=== PATIENT | male | born 1995 | race Caucasian/White ===

== ENCOUNTER 2018-08-20 13:31 | Emergency (ER) | payer BC ==
[2018-08-20 13:52] VITALS: RESP 18; TEMP 98.1
[2018-08-20] MEDS ORDERED: SODIUM CHLORIDE 0.9% 1,000 ML IV STA (14:59)
[2018-08-20 15:29] LABS: Basophils % (A) 0 %; Eosinophils # (A) 0.1 k/uL (0-0.7); Eosinophils % (A) 1 %; HCT 45.8 % (39.0-53.0); HGB 15.1 gm/dL (13.0-17.5); Lymphocytes % (A) 11 %; MCH 31.2 pg (25.0-35.0); MCHC 33.1 g/dL (31.0-37.0); MCV 94.3 fL (80.0-100.0); Mean Platelet Volume 7.4; Monocytes # (A) 0.4 k/uL (0-1.0); Monocytes % (A) 5 %; Neutrophils # (A) 7.5 k/uL (1.3-7.7); Neutrophils % (A) 82 %; Platelet Count 132 k/uL (150-450); RBC 4.85 m/uL (4.30-5.90); RDW 12.7 % (11.5-15.5); WBC 9.2 k/uL (3.8-10.6)
--- NOTE | 2018-08-20 15:39 | ED ---
General Adult HPI - General Chief complaint: Urogenital Stated complaint: Hernia Time Seen by Provider: 08/20/18 14:49 Source: patient Mode of arrival: ambulatory Limitations: no limitations - History of Present Illness Initial comments: 23-year-old male patient presents to the emergency department today for evaluation of a bulging and pain to the right groin. Patient states he has had some discomfort to the right groin region for the last couple of weeks. States that today the area became more painful. He is currently rating at a 5 out of 10 on the pain scale. States he was seen and evaluated at [facility] and was sent over for evaluation of possible incarcerated hernia. He states he did have some difficulty urinating earlier today and that his urine has been quite dark. Denies any fevers or chills. Denies any nausea or vomiting. States he is eating and drinking without difficulty. Denies any difficulty with bowel movements. 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 Patient denies any recent rash, shortness breath, chest pain, diarrhea, constipation, back pain, numbness, tingling, dizziness, weakness, hematuria, dysuria, urinary urgency, urinary frequency, headache, visual changes, or any other complaints. - Related Data Home Medications Medication Instructions Recorded Confirmed Aspirin/Acetaminophen/Caffeine 1 tab PO ONCE 08/20/18 08/20/18 [Excedrin Migraine Caplet] Naproxen Sodium [Aleve] 220 mg PO ONCE 08/20/18 08/20/18 Previous Rx's Medication Instructions Recorded Ibuprofen [Motrin] 600 mg PO Q8HR PRN #30 tab 08/20/18 Allergies Allergy/AdvReac Type Severity Reaction Status Date / Time No Known Allergies Allergy Verified 08/20/18 14:51 Review of Systems ROS Statement: Those systems with pertinent positive or pertinent negative responses have been documented in the HPI. ROS Other: All systems not noted in ROS Statement are negative. Past Medical History Past Medical History: No Reported History History of Any Multi-Drug Resistant Organisms: None Reported Past Surgical History: No Surgical Hx Reported Past Psychological History: No Psychological Hx Reported Smoking Status: Current every day smoker Past Alcohol Use History: Occasional Past Drug Use History: None Reported General Exam Limitations: no limitations General appearance: alert, in no apparent distress, other (Social well-developed , well-nourished adult male patient in no acute distress. Vital signs upon presentation are temperature 98.1F, pulse 78, respirations 18, blood pressure 116/71, pulse ox 100% on room air.) Eye exam: Present: normal appearance, PERRL, EOMI. Absent: scleral icterus, conjunctival injection, periorbital swelling ENT exam: Present: normal exam, normal oropharynx, mucous membranes moist Respiratory exam: Present: normal lung sounds bilaterally. Absent: respiratory distress, wheezes, rales, rhonchi, stridor Cardiovascular Exam: Present: regular rate, normal rhythm, normal heart sounds. Absent: systolic murmur, diastolic murmur, rubs, gallop, clicks GI/Abdominal exam: Present: soft, tenderness (Tenderness to the right groin. There is overlying erythema.), normal bowel sounds, hernia (Right inguinal). Absent: distended, guarding, rebound, rigid Neurological exam: Present: alert, oriented X3, CN II-XII intact Psychiatric exam: Present: normal affect, normal mood Skin exam: Present: warm, dry, intact, normal color. Absent: rash Course Vital Signs 08/20/18 08/20/18 13:49 17:46 Temperature 98.1 F 98.1 F Pulse Rate 78 89 Respiratory 18 18 Rate Blood Pressure 116/71 112/56 O2 Sat by Pulse 100 98 Oximetry Medical Decision Making - Medical Decision Making 23-year-old male patient presents the emergency department today for evaluation of right inguinal pain and swelling. Physical examination did reveal some erythema over the right inguinal region with tenderness. Labs reviewed and are unremarkable. Lactic acid white blood cell count normal. CT abdomen and pelvis was obtained and did reveal evidence of a right inguinal hernia with some mild fat stranding possibly containing small bowel. No evidence of polyps Shechter. Did discuss findings and results with the patient. He'll be discharged home to follow-up with surgery outpatient, they requested Dr. Buckner for follow-up. Return parameters were discussed in detail. Patient verbalizes understanding and agrees this plan. - Lab Data Result diagrams: 08/20/18 15:15 08/20/18 15:15 Lab Results 08/20/18 08/20/18 08/20/18 Range/Units 15:15 15:15 15:15 WBC 9.2 (3.8-10.6) k/uL RBC 4.85 (4.30-5.90) m/uL Hgb 15.1 (13.0-17.5) gm/dL Hct 45.8 (39.0-53.0) % MCV 94.3 (80.0-100.0) fL MCH 31.2 (25.0-35.0) pg MCHC 33.1 (31.0-37.0) g/dL RDW 12.7 (11.5-15.5) % Plt Count 132 L (150-450) k/uL Neutrophils % 82 % Lymphocytes % 11 % Monocytes % 5 % Eosinophils % 1 % Basophils % 0 % Neutrophils # 7.5 (1.3-7.7) k/uL Lymphocytes # 1.0 (1.0-4.8) k/uL Monocytes # 0.4 (0-1.0) k/uL Eosinophils # 0.1 (0-0.7) k/uL Basophils # 0.0 (0-0.2) k/uL Sodium 138 (137-145) mmol/L Potassium 4.8 (3.5-5.1) mmol/L Chloride 106 (98-107) mmol/L Carbon Dioxide 23 (22-30) mmol/L Anion Gap 9 mmol/L BUN 11 (9-20) mg/dL Creatinine 0.70 (0.66-1.25) mg/dL Est GFR (CKD-EPI)AfAm >90 (>60 ml/min/1.73 sqM) Est GFR (CKD-EPI)NonAf >90 (>60 ml/min/1.73 sqM) Glucose 94 (74-99) mg/dL Plasma Lactic Acid Guevara 1.2 (0.7-2.0) mmol/L Calcium 9.2 (8.4-10.2) mg/dL Total Bilirubin 1.0 (0.2-1.3) mg/dL AST 36 (17-59) U/L ALT 27 (21-72) U/L Alkaline Phosphatase 45 (38-126) U/L Total Protein 7.5 (6.3-8.2) g/dL Albumin 4.3 (3.5-5.0) g/dL Amylase 48 (30-110) U/L Lipase 14 L (23-300) U/L Urine Color Urine Appearance (Clear) Urine pH (5.0-8.0) Ur Specific Montgomery (1.001-1.035) Urine Protein (Negative) Urine Glucose (UA) (Negative) Urine Ketones (Negative) Urine Blood (Negative) Urine Nitrite (Negative) Urine Bilirubin (Negative) Urine Urobilinogen (<2.0) mg/dL Ur Leukocyte Esterase (Negative) Urine RBC (0-5) /hpf Urine WBC (0-5) /hpf Urine Mucus (None) /hpf 08/20/18 Range/Units 15:15 WBC (3.8-10.6) k/uL RBC (4.30-5.90) m/uL Hgb (13.0-17.5) gm/dL Hct (39.0-53.0) % MCV (80.0-100.0) fL MCH (25.0-35.0) pg MCHC (31.0-37.0) g/dL RDW (11.5-15.5) % Plt Count (150-450) k/uL Neutrophils % % Lymphocytes % % Monocytes % % Eosinophils % % Basophils % % Neutrophils # (1.3-7.7) k/uL Lymphocytes # (1.0-4.8) k/uL Monocytes # (0-1.0) k/uL Eosinophils # (0-0.7) k/uL Basophils # (0-0.2) k/uL Sodium (137-145) mmol/L Potassium (3.5-5.1) mmol/L Chloride (98-107) mmol/L Carbon Dioxide (22-30) mmol/L Anion Gap mmol/L BUN (9-20) mg/dL Creatinine (0.66-1.25) mg/dL Est GFR (CKD-EPI)AfAm (>60 ml/min/1.73 sqM) Est GFR (CKD-EPI)NonAf (>60 ml/min/1.73 sqM) Glucose (74-99) mg/dL Plasma Lactic Acid Guevara (0.7-2.0) mmol/L Calcium (8.4-10.2) mg/dL Total Bilirubin (0.2-1.3) mg/dL AST (17-59) U/L ALT (21-72) U/L Alkaline Phosphatase (38-126) U/L Total Protein (6.3-8.2) g/dL Albumin (3.5-5.0) g/dL Amylase (30-110) U/L Lipase (23-300) U/L Urine Color Yellow Urine Appearance Clear (Clear) Urine pH 6.5 (5.0-8.0) Ur Specific [place] 1.012 (1.001-1.035) Urine Protein Negative (Negative) Urine Glucose (UA) Negative (Negative) Urine Ketones Negative (Negative) Urine Blood Negative (Negative) Urine Nitrite Negative (Negative) Urine Bilirubin Negative (Negative) Urine Urobilinogen <2.0 (<2.0) mg/dL Ur Leukocyte Esterase Small H (Negative) Urine RBC 1 (0-5) /hpf Urine WBC 18 H (0-5) /hpf Urine Mucus Rare H (None) /hpf - Radiology Data Radiology results: report reviewed, image reviewed CT abdomen and pelvis with contrast was obtained. Report was reviewed in its entirety. Impression by Dr. Pappas shows right inguinal fat stranding and small inguinal hernia. Hernia may contain small bowel. Do not see evidence for bowel obstruction. Appendix is not seen. No sign of appendicitis. Disposition Clinical Impression: Right inguinal hernia Disposition: HOME SELF-CARE Condition: Good Instructions: Inguinal Hernia (ED) Additional Instructions: Take medication as directed. Follow up with your primary care physician and surgeon as soon as possible. Return to the emergency department for any new, worsening, or concerning symptoms. Prescriptions: Ibuprofen [Motrin] 600 mg PO Q8HR PRN #30 tab PRN Reason: Pain Is patient prescribed a controlled substance at d/c from ED?: No Referrals: Lois Jennings MD [Primary Care Provider] - 1-2 days Sammy Buckner MD [Medical Doctor] - 1-2 days Time of Disposition: 17:15
[2018-08-20 15:40] LABS: ALT 27 U/L (21-72); AST 36 U/L (17-59); Albumin 4.3 g/dL (3.5-5.0); Alkaline Phosphatase 45 U/L (38-126); Amylase 48 U/L (30-110); Anion Gap 9 mmol/L; Blood Urea Nitrogen 11 mg/dL (9-20); Calcium 9.2 mg/dL (8.4-10.2); Carbon Dioxide 23 mmol/L (22-30); Chloride 106 mmol/L (98-107); Glucose 94 mg/dL (74-99); Lipase 14 U/L (23-300); Sodium 138 mmol/L (137-145); Total Protein 7.5 g/dL (6.3-8.2)
[2018-08-20 15:42] LABS: Potassium 4.8 mmol/L (3.5-5.1)
[2018-08-20 15:49] LABS: Appearance,Urine Clear (Clear); Bilirubin,Urine Negative (Negative); Blood,Urine Negative (Negative); Color,Urine Yellow; Glucose,Urine (UA) Negative (Negative); Ketones,Urine Negative (Negative); Leukocyte Esterase,Urine Small (Negative); Mucus,Urine Rare /hpf; Nitrite,Urine Negative (Negative); PH, Urine 6.5 (5.0-8.0); Protein,Urine Negative (Negative); RBC,Urine 1 /hpf (0-5); Specific Gravity,Urine 1.012 (1.001-1.035); Urobilinogen,Urine <2.0 mg/dL (<2.0); WBC,Urine 18 /hpf (0-5)
--- NOTE | 2018-08-20 16:51 | CT ---
EXAMINATION TYPE: CT abdomen pelvis w con DATE OF EXAM: 08/20/2018 COMPARISON: None HISTORY: Patient complains of RLQ pain and known hernia. CT DLP: 599.1 mGycm Automated exposure control for dose reduction was used. TECHNIQUE: Helical acquisition of images was performed from the lung bases through the pelvis. CONTRAST: Performed without Oral Contrast and with IV Contrast, patient injected with 100 mL of Isovue 300. FINDINGS: Lung bases are clear of consolidation. There is minimal subsegmental atelectasis. Heart size is normal. Liver appears normal. Spleen measures 13 cm. There is no pancreatic mass. Gallb ladder appears normal. There is no adrenal mass. Kidneys show satisfactory contrast opacification. There is no hydronephrosi s. Ureters are not dilated. There is no retroperitoneal adenopathy. The bladder distends smoothly. Th ere is minimal fat stranding in the right inguinal region with small hernia. It is not clear if there is bowel in the hernia. I see no intestinal wall thickening. There is no evidence of a bowel obstruction. There is no mesente harinder edema. Appendix is not definitely seen. There is no sign of appendicitis. Intestinal gas pattern is fairly normal. There is no evidence of free air. The lumbar spine and bony pelvis appear intact. IMPRESSION: RIGHT INGUINAL FAT STRANDING AND SMALL INGUINAL HERNIA. HERNIA MAY CONTAIN SMALL BOWEL. I DO NOT SEE EVIDENCE OF A BOWEL OBSTRUCTION. APPENDIX NOT DEFINITELY SEEN. NO SIGN OF APPENDICITIS.
[2018-08-20] MEDS ORDERED: ACET/COD 300 MG/30 MG STARTER PACK 6 TAB BTL PO STA (17:15)
[2018-08-20 17:48] VITALS: BP 112/56; PULSE 89
== END 2018-08-20 17:46 | disposition home or self-care (01) ==
LOC: EC 13:31
DX: K40.90 Unilateral inguinal hernia, without obstruction or gangrene, not specified as recurrent (principal); F17.200 Nicotine dependence, unspecified, uncomplicated; Z79.82 Long term (current) use of aspirin; Z79.1 Long term (current) use of non-steroidal anti-inflammatories (NSAID)
CPT/HCPCS: 36415; 80053; 82150; 83605; 83690; 85025; 81001; 74177; 99284; 96360; Q9967

== ENCOUNTER → 2018-08-23 | Outpatient (CLI) | payer BC ==
--- NOTE | 2018-08-23 13:54 | US ---
EXAMINATION TYPE: US scrotum with doppler. DATE OF EXAM: 08/23/2018 COMPARISON: Correlation CT 08/20/2018 CLINICAL HISTORY: 23-year-old male N50.89 TESTICULAR SWELLING. 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 FINDINGS: EXAM MEASUREMENTS: TESTICLES: Right Testicle: 4.2x 3.3 x 2.9 cm Left Testicle: 4.2 x 3.5 x 2.8 cm EPIDIDYMIS HEAD: Right Epididymis: 0.6 x 0.8 x 1.2 cm. However, the remainder of the epididymis is enlarged and hete rogeneous with hyperemia. Left Epididymis: 1.2 x 0.6 x 1.2 cm Doppler was performed to assess for testicular vascularity; good bilateral color flow and waveforms a re seen. There is no evidence of testicular torsion. Presence of hydroceles: small hydrocele in right scrotal sac = 3.8 x 0.6 x 2.2cm; smaller hydrocele seen in left scrotal sac = 1.2 x 0.6 x 0.2cm Presence of varicoceles: enlarged epididymis and vessels are seen throughout right side/scrotal sac and into right groin. No inguinal hernia is seen on right. Couple of right groin lymph nodes are note d with mildly enlarged lymph nodes measuring up to 1.3 x 1.7 x 0.9cm. Couple of microcalcifications are noted in bilateral testicle suggesting minimal microlithiasis likel y of no clinical significance. IMPRESSION: 1. Enlarged, heterogeneous, and hyperemic right epididymis. Correlate for epididymitis. 2. Normal symmetrical appearance to the testicles. No evidence for testicular torsion. 3. Small right and trace left hydroceles. 4. Some edematous-appearing thickening along the inguinal ligament with borderline-sized right inguin al lymphadenopathy may also reflect sequela of epididymitis. Clinical follow-up is recommended. No co nvincing evidence for inguinal hernia.
== END | disposition home or self-care (01) ==
LOC: RADUSWWP 12:09
PROVIDERS: ATTEND Student in an Organized Health Care Education/Training Program
DX: N50.89 Other specified disorders of the male genital organs (principal)
CPT/HCPCS: 76870; 93975